=== PATIENT | female | born 1955 | race Caucasian/White ===

== ENCOUNTER 2016-05-04 06:23 | Inpatient (IN) | payer OTHER ==
[~2016-05-04] VITALS: Ht 167.6 cm; Wt 63.3 kg
[2016-05-04] VITALS (8 sets, daily range): BP systolic 109–160; BP diastolic 64–73; PULSE 74–83; RESP 12–20; TEMP 98.2–98.6; O2SAT 95–99
[~2016-05-04 06:23] MED LIST: ASPI81; GLUCTAB PO; HYDR-2768 PO; LORTA10 PO; NAPR550 PO; RANI150T PO; SIMV40TA PO
[2016-05-04] MEDS ORDERED: SODIUM CHLOR 0.9% 1000 ML INJ 1,000 ML IV SCH (09:20)
[2016-05-04] MEDS ORDERED: ONDANSETRON HCL 4 MG/2 ML VIAL IVP PRN (09:30)
[2016-05-04] MEDS ORDERED: ceFAZolin 2 GM PREMIX 50 ML IV SCH (09:30)
[2016-05-04] MEDS ORDERED: PANTOPRAZOLE SOD 40 MG DELAYED RELEASE TAB PO SCH (09:30)
[2016-05-04] MEDS ORDERED: PAPAVERINE INJ 60 MG, NITROGLYCERIN INJ 100 MCG, DILTIAZEM INJ 100 MG in SODIUM CHLORID... IRRIGATION SCH (09:30)
[2016-05-04] MEDS ORDERED: METOPROLOL TARTRATE 25 MG TAB PO SCH (09:30)
[2016-05-04] MEDS ORDERED: INSULIN REGULAR (IV INFUSION) 100 UNITS in SODIUM CHLORIDE 0.9% INJ 100 ML IV SCH (09:30)
[2016-05-04] MEDS ORDERED: ACETAMINOPHEN 325 MG TAB PO PRN (09:30)
[2016-05-04] MEDS ORDERED: CHLORHEXIDINE GLUCONATE 4% SOLN 120 ML BTL TOPICAL SCH (09:30)
[2016-05-04] MEDS ORDERED: SODIUM CHLORIDE 0.9% FLUSH 5 ML FLUSH FLUSH PRN (09:30)
[2016-05-04] MEDS ORDERED: MAGNESIUM HYDROXIDE SUSP 30 ML CUP PO PRN (09:30)
[2016-05-04] MEDS ORDERED: CEFAZOLIN INJ 500 MG in SODIUM CHLORIDE 0.9% IRR BTL 500 ML IRRIGATION SCH (09:30)
[2016-05-04] MEDS ORDERED: NALOXONE HCL 0.4 MG/ML AMP IV PRN (09:30)
[2016-05-04] MEDS ORDERED: SODIUM CHLORIDE 0.9% FLUSH 5 ML FLUSH IV FLUSH PRN (09:30)
[2016-05-04] MEDS ORDERED: HEPARIN-D5W INJ 250 ML IV SCH (09:45)
[2016-05-04] MEDS ORDERED: HEPARIN-D5W INJ 250 ML ONE (09:58)
[2016-05-04] MEDS ORDERED: oxyCODONE/ACETAMINOPHEN 5 MG/325 MG TAB PO PRN (10:00)
[2016-05-04] MEDS ORDERED: MORPHINE SULFATE 4 MG/ML INJ IV PRN (10:00)
[2016-05-04] MEDS: DOCUSATE SODIUM 100 MG CAP PO SCH ×2 (10:02→21:30)
[2016-05-04] MEDS: METOPROLOL TARTRATE 25 MG TAB PO SCH ×2 (10:03→21:30)
[2016-05-04 11:01] LABS: BLOOD, URINE NEG (NEG); COMMENT (UR) CULTURE INDICATED; CULTURE IF INDICATED CULTURE INDICATED; GLUCOSE,URINE TRACE mg/dL (NEG); HYALINE CAST, URINE 1 /lpf (RARE); KETONE, URINE NEG (NEG); MUCUS URINE FEW /lpf (OCC); NITRITE,URINE NEG (NEG); URINE COLOR YELLOW (YELLW/STRAW)
[2016-05-04 11:13] LABS: ANION GAP 8 MEQ/L (5-15); BICARBONATE 28.6 MEQ/L (21.0-32.0); BLOOD UREA NITROGEN 17 MG/DL (7-18); CHLORIDE 102 MEQ/L (98-107); GLOMERULAR FILTRATION RATE 58 ML/MIN (>89); SODIUM (NA) 139 MEQ/L (136-145)
[2016-05-04 11:15] LABS: POTASSIUM 4.3 MEQ/L (3.5-5.1)
--- NOTE | 2016-05-04 12:11 | RADRPT ---
EXAM DATE/TIME: 05/04/2016 09:57 [facility] COMPARISON: No previous studies available for comparison. INDICATIONS : PreOp cardiac surgery. MEDICAL HISTORY : Hypercholesterolemia. Hypertension. Diabetes. SURGICAL HISTORY : Appendectomy. Tubal ligation. ENCOUNTER: Initial ACUITY: 1 day PAIN SCORE: 0/10 LOCATION: Bilateral neck PEAK SYSTOLIC VELOCITIES (cm/sec): ICA/CCA RATIO: Right: 1.1 Left: 1.7 ICA: Right: 80 Left: 162 CCA: Right: 74 Left: 94 ECA: Right: 92 Left: 318 VERTEBRAL: Right: 41 antegrade Left: 56 antegrade Elevated flow velocities and ICA/CCA ratios have been found to correlate with increased degrees of vessel stenosis, calculated as percentage of diameter relative to a normal segment of distal ICA/CCA FINDINGS: RIGHT CAROTID: There is no evidence for a hemodynamically significant carotid stenosis. Minimal int imal hyperplasia is present with scattered calcific plaque. LEFT CAROTID: There is no evidence for a hemodynamically significant carotid stenosis. Minimal inti mal hyperplasia is present with scattered calcific plaque. VERTEBRAL ARTERIES: Flow is antegrade in both vertebral arteries. MISCELLANEOUS: There are no ancillary masses or adenopathy. CONCLUSION: Negative examination for a hemodynamically significant carotid stenosis. Vinay Flowesr MD FACR Vinay Flowers MD FACR on May 04, 2016 at 12:09 Board Certified Radiologist. This report was verified electronically.
--- NOTE | 2016-05-04 12:12 | RADRPT ---
EXAM DATE/TIME: 05/04/2016 10:15 [facility] COMPARISON: No previous studies available for comparison. INDICATIONS : PreOp cardiac surgery. MEDICAL HISTORY : Hypertension. Hypercholesterolemia. Diabetes. SURGICAL HISTORY : Appendectomy.Tubal ligation. ENCOUNTER: Initial ACUITY: 1 day PAIN SCORE: 0/10 LOCATION: Bilateral legs. TECHNIQUE: Venous ultrasound of the left and right leg was performed from the inguinal ligament to the proximal calf. Real-time, color Doppler and spectral tracing, compression and augmentation techniques were us ed. FINDINGS: RIGHT LEG: There is normal compressibility of the deep venous system from the inguinal region to the proximal ca lf. No echogenic clot is seen in the lumen of the common femoral, femoral, popliteal, and posterior tibial veins. There is a normal response of the venous system to proximal and distal augmentation an d respiration. LEFT LEG: There is normal compressibility of the deep venous system from the inguinal region to the proximal ca lf. No echogenic clot is seen in the lumen of the common femoral, femoral, popliteal, and posterior tibial veins. There is a normal response of the venous system to proximal and distal augmentation an d respiration. CONCLUSION: Negative for deep venous thrombosis. Vinay Flowers MD FACR on May 04, 2016 at 12:10 Board Certified Radiologist. This report was verified electronically.
--- NOTE | 2016-05-04 12:13 | RADRPT ---
EXAM DATE/TIME: 05/04/2016 10:30 [facility] COMPARISON: No previous studies available for comparison. INDICATIONS : PreOp cardiac surgery. MEDICAL HISTORY : Hypercholesterolemia. Hypertension. Diabetes. SURGICAL HISTORY : Appendectomy. Tubal ligation. ENCOUNTER: Initial ACUITY: 1 day PAIN SCORE: 0/10 LOCATION: Bilateral legs. GREATER SAPHENOUS VEIN THIGH: PROXIMAL: Right 3 mm Left 4 mm MID: Right 2 mm Left 1 mm DISTAL: Right 1 mm Left Non-visualized CALF: PROXIMAL: Right 1 mm Left Non-visualized MID: Right Non-visualized Left Non-visualized DISTAL: Right Non-visualized Left Non-visualized FINDINGS: The venous system of the lower extremities are patent by color Doppler imaging. Measurements of the leg veins (in mm) are listed above. CONCLUSION: Venous mapping as described above. Vinay Flowers MD FACR on May 04, 2016 at 12:10 Board Certified Radiologist. This report was verified electronically.
--- NOTE | 2016-05-04 13:10 | RADRPT ---
EXAM DATE/TIME: 05/04/2016 09:39 [facility] COMPARISON: No previous studies available for comparison. INDICATIONS : Placement of intra-aortic balloon pump. MEDICAL HISTORY : None. SURGICAL HISTORY : None. ENCOUNTER: Initial ACUITY: 1 day PAIN SCORE: 0/10 LOCATION: Bilateral chest FINDINGS: There is an enteric balloon pump projected over the proximal descending thoracic aorta. No focal cons olidation or effusion. No pneumothorax. Heart size mildly enlarged. CONCLUSION: 1. Intra-aortic balloon pump tip is projected over proximal descending thoracic aorta in satisfactory position. Brad Frank MD on May 04, 2016 at 13:07 Board Certified Radiologist. This report was verified electronically.
[2016-05-04 14:49] LABS: PROTHROMBIN TIME - PATIENT 10.7 SEC (9.8-11.6)
--- NOTE | 2016-05-04 14:50 | PD.CAR.PN ---
CVT Progress Note Subjective/Hospital Course: sts data discussed with pt RISK SCORES About the STS Risk Calculator Procedure: CAB Only Risk of Mortality: 2.317% Morbidity or Mortality: 24.194% Long Length of Stay: 7.075% Short Length of Stay: 34.877% Permanent Stroke: 1.439% Prolonged Ventilation: 25.535% DSW Infection: 0.364% Renal Failure: 2.665% Reoperation: 7.115% Objective: Vital Signs Date Time Temp Pulse Resp B/P Pulse Ox O2 Delivery O2 Flow Rate FiO2 05/04/16 14:09 143/67 05/04/16 13:09 145/63 05/04/16 12:08 145/63 05/04/16 11:30 98.6 75 18 157/73 98 05/04/16 11:02 135/61 05/04/16 11:02 83 05/04/16 10:56 16 05/04/16 10:00 147/72 05/04/16 09:54 98.6 83 17 160/66 97 05/04/16 09:13 135/65 05/04/16 09:08 95 Room Air 05/04/16 08:54 127/62 05/04/16 08:53 78 Labs: Laboratory Tests Test 05/04/16 05/04/16 05/04/16 10:00 10:46 12:47 Urine Color YELLOW (YELLW/STRAW) Urine Turbidity CLEAR (CLEAR) Urine pH 8.0 (5.0-8.5) Urine Specific [place] 1.019 (1.002-1.035) Urine Protein TRACE mg/dL (NEG-TRACE) Urine Glucose (UA) TRACE mg/dL (NEG) Urine Ketones NEG mg/dL (NEG) Urine Occult Blood NEG (NEG) Urine Nitrite NEG (NEG) Urine Bilirubin NEG (NEG) Urine Urobilinogen LESS THAN 2.0 MG/DL (LESS THAN 2.0) Urine Leukocyte Esterase NEG (NEG) Urine RBC 3 /hpf (0-3) Urine WBC 4 /hpf (0-5) Urine WBC Clumps RARE (NONE) Urine Hyaline Casts 1 /lpf (RARE) Urine Mucus FEW /lpf (OCC) Microscopic Urinalysis Comment CULTURE INDICATED Nasal Screen MRSA (PCR) NEGATIVE (NEGATIVE) Sodium Level 139 MEQ/L (136-145) Potassium Level 4.3 MEQ/L (3.5-5.1) Chloride Level 102 MEQ/L (98-107) Carbon Dioxide Level 28.6 MEQ/L (21.0-32.0) Anion Gap 8 MEQ/L (5-15) Blood Urea Nitrogen 17 MG/DL (7-18) Creatinine 0.98 MG/DL (0.50-1.00) Estimat Glomerular Filtration 58 ML/MIN (>89) Rate Random Glucose 152 MG/DL (74-106) Calcium Level 8.9 MG/DL (8.5-10.1) Prothrombin Time 10.7 SEC (9.8-11.6) Prothromb Time International 1.0 RATIO Ratio Activated Partial 40.0 SEC Thromboplast Time (24.3-30.1) Result Diagram: 05/04/16 1046 Melani Mario May 04, 2016 14:50
[2016-05-04 14:55] LABS: AUTOMATED NEUTROPHIL # 7.4 TH/MM3 (1.8-7.7); BASOPHIL % 0.2 % (0.0-2.0); HEMATOCRIT 33.5 % (35.0-46.0); HEMO FLAGS DIFF FINAL; LYMPHOCYTE # 1.3 TH/MM3 (1.0-4.8); MEAN CELL VOLUME 85.5 FL (80.0-100.0); MEAN CORPUSCULAR HEMOGLOBIN 28.6 PG (27.0-34.0); MEAN CORPUSCULAR HGB CONC 33.5 % (32.0-36.0); MONO % 4.7 % (0.0-8.0); NEUT % 81.1 % (16.0-70.0); PLATELET COUNT 195 TH/MM3 (150-450); RED BLOOD COUNT 3.92 MIL/MM3 (4.00-5.30); RED CELL DISTRIBUTION WIDTH 13.6 % (11.6-17.2); WHITE BLOOD COUNT 9.2 TH/MM3 (4.0-11.0)
[2016-05-04] MEDS: VANCOMYCIN HCL 1000 MG VIAL ONE ×2 (15:29→15:30)
[2016-05-04] MEDS: HEPARIN SODIUM - SQ 10,000 UNITS/ML VIAL ONE (15:30)
[2016-05-04] MEDS ORDERED: HEPARIN SODIUM - IV 10,000 UNITS/10 ML VIAL IV PRN ×2 (15:45)
[2016-05-04] MEDS ORDERED: ASPIRIN EC 81 MG TABEC PO SCH (16:00)
--- NOTE | 2016-05-04 16:57 | EC ---
Study Study Date:05/04/2016 STUDY CONCLUSIONS SUMMARY - Left ventricle: The cavity size was normal. Systolic function was normal. The estimated ejection fraction was in the range of 55% to 60%. Wall motion was normal; there were no regional wall motion abnormalities. - Mitral valve: Mild regurgitation. If LV function is below 40, please consider prescribing an ACEI or ARB or document rationale for non-use. PROCEDURE DATA STUDY STATUS: Elective. Procedure: Transthoracic echocardiography. Image quality was good. Scanning was performed from the parasternal, apical, and subcostal acoustic windows. Study completion: The patient tolerated the procedure well. Transthoracic echocardiography. M-mode, complete 2D, complete spectral Doppler, and color Doppler. Patient status: Inpatient. CARDIAC ANATOMY LEFT VENTRICLE: The cavity size was normal. Systolic function was normal. The estimated ejection fraction was in the range of 55% to 60%. Wall motion was normal; there were no regional wall motion abnormalities. AORTIC VALVE: Trileaflet; mildly thickened leaflets. Doppler: There was no stenosis. No significant regurgitation. MITRAL VALVE: The valve appears to be grossly normal. Doppler: There was no evidence for stenosis. Mild regurgitation. LEFT ATRIUM: The atrium was normal in size. RIGHT VENTRICLE: The cavity size was normal. Systolic function was normal. PULMONIC VALVE: Not well visualized. Doppler: There was no evidence for stenosis. No significant regurgitation. TRICUSPID VALVE: The valve appears to be grossly normal. Doppler: There was no evidence for stenosis. Trace to mild regurgitation. PERICARDIUM: There was no pericardial effusion. Prepared and signed by Evangelist Senior [id number]
[2016-05-04] MEDS ORDERED: ASPI81TA81 PO (17:06)
[2016-05-04 17:09] LABS: HEMOGLOBIN A1a 1.4 %; HEMOGLOBIN Ao 83.2 %; HEMOGLOBIN LA1C 2.6 %; HEMOGLOBIN P3 4.3 %
[2016-05-04] MEDS ORDERED: RANI1TAB5 PO (17:31)
[2016-05-04] MEDS ORDERED: HYDR25TA5 PO (17:31)
[2016-05-04] MEDS ORDERED: METF500T PO (17:31)
[2016-05-04] MEDS ORDERED: HYDR-3583 PO (17:31)
[2016-05-04] MEDS ORDERED: SIMV40TA PO (17:31)
[2016-05-04] MEDS ORDERED: NAPR275T18 PO (17:31)
[2016-05-04] MEDS ORDERED: SODIUM CHLORIDE 0.9% FLUSH 5 ML FLUSH IV FLUSH SCH (21:00)
[2016-05-04] MEDS ORDERED: SODIUM CHLORIDE 0.9% FLUSH 5 ML FLUSH FLUSH SCH (21:00)
[2016-05-04] MEDS: PRAVASTATIN SOD 10 MG TAB PO SCH (21:30)
[2016-05-04 22:15] LABS: APTT (PATIENT) 37.8 SEC (24.3-30.1)
[2016-05-05] VITALS (18 sets, daily range): BP systolic 82–149; BP diastolic 45–85; PULSE 68–93; RESP 11–20; TEMP 97–99.5; O2SAT 94–99
[2016-05-05 04:47] LABS: APTT (PATIENT) 56.1 SEC (24.3-30.1)
[2016-05-05] MEDS ORDERED: DEXTROSE 5% IN WATER 100ML INJ 100 ML IV ONE (05:00)
[2016-05-05] MEDS ORDERED: AMIODARONE HCL 150 MG/3 ML VIAL IV ONE (05:00)
[2016-05-05] MEDS ORDERED: PROPOFOL 1000 MG/100 ML INJ 100 ML IV ONE (05:00)
[2016-05-05] MEDS ORDERED: PHENYLEPHRINE HCL 10 MG/ML VIAL IV ONE (05:00)
[2016-05-05] MEDS ORDERED: HEPARIN SODIUM - SQ 10,000 UNITS/ML VIAL SQ ONE (05:00)
[2016-05-05] MEDS ORDERED: AMINOCAPROIC ACID INJ 250 MG/ML 20 ML VIAL IV ONE (05:00)
[2016-05-05] MEDS ORDERED: ARTIFICIAL TEARS OPTH OINT 3.5 APPLIC/3.5 GM TUBO ONE (05:00)
[2016-05-05] MEDS ORDERED: CALCIUM CHLORIDE 10% SOLN 1 GRAM/10 ML SYR IV ONE (05:00)
[2016-05-05] MEDS ORDERED: MAGNESIUM SULFATE 1000 MG/2 ML VIAL (PED) IV ONE (05:00)
[2016-05-05] MEDS ORDERED: LACTATED RINGER'S 1000 ML IV SCH (06:00)
[2016-05-05] MEDS ORDERED: INSULIN HUMAN REGULAR 1,000 UNITS/10 ML VIAL SQ PRN (06:00)
[2016-05-05] MEDS ORDERED: SODIUM CHLORID 0.9% 500 ML IV SCH (06:00)
[2016-05-05] MEDS ORDERED: POTASSIUM CHLORIDE 40 MEQ/20 ML VIAL ONE (06:48)
[2016-05-05] MEDS ORDERED: CARDIOPLEGIC IRR 1,000 ML ONE (06:48)
[2016-05-05] MEDS ORDERED: MANNITOL INJ 50 ML ONE (06:48)
[2016-05-05] MEDS ORDERED: SODIUM BICARBONATE 8.4% INJ 50 ML ONE (06:49)
[2016-05-05] MEDS ORDERED: HEPARIN SODIUM - IV 10,000 UNITS/10 ML VIAL ONE (06:50)
[2016-05-05] MEDS ORDERED: ALBUMIN HUMAN 25% 12.5 GM/50 ML BAGP IV ONE (06:51)
[2016-05-05] MEDS ORDERED: methylPREDNISolone SOD SUCC 125 MG/2 ML VIAL ONE (08:54)
[2016-05-05] MEDS: HEPARIN SODIUM - SQ 10,000 UNITS/ML VIAL ONE (09:02)
[2016-05-05] MEDS: VANCOMYCIN HCL 1000 MG VIAL ONE ×2 (09:02)
[2016-05-05] MEDS: DOCUSATE SODIUM 100 MG CAP PO SCH ×2 (09:30→21:46)
[2016-05-05] MEDS ORDERED: ACETAMINOPHEN 1000 MG/100 ML VIAL IV ONE (11:41)
[2016-05-05] MEDS ORDERED: CALCIUM CHLORIDE INJ 1 GM in SODIUM CHLORIDE 0.9% INJ 100 ML IV PRN (11:45)
[2016-05-05] MEDS ORDERED: Post-op Orders (for Pharmacy) MISC OTHER ONE (11:45)
[2016-05-05] MEDS ORDERED: METOPROLOL TARTRATE 5 MG/5 ML VIAL IV PUSH PRN (11:45)
[2016-05-05] MEDS ORDERED: LACTATED RINGER'S 1000 ML INJ 500 ML IV PRN (11:45)
[2016-05-05] MEDS ORDERED: POTASSIUM CHLORIDE 20 MEQ CONTROLLED RELEASE TAB PO PRN ×2 (11:45)
[2016-05-05] MEDS ORDERED: DEXTROSE 50% IN WATER 50 ML VIAL(D50) IV PUSH PRN (11:45)
[2016-05-05] MEDS ORDERED: CALCIUM CHLORIDE 10% 1 GRAM/10 ML VIAL IV PRN (11:45)
[2016-05-05] MEDS ORDERED: ACETAMINOPHEN 650 MG SUPP RECTAL PRN (11:45)
[2016-05-05] MEDS ORDERED: MAGNESIUM SULFATE INJ 2 GM in SODIUM CHLORIDE 0.9% INJ 100 ML IV PRN ×4 (11:45)
[2016-05-05] MEDS ORDERED: CLEVIDIPINE INJ 50 ML IV SCH (11:45)
[2016-05-05] MEDS ORDERED: ACETAMINOPHEN 325 MG TAB PO PRN (11:45)
[2016-05-05] MEDS ORDERED: SODIUM CHLORIDE 0.9% FLUSH 5 ML FLUSH IV FLUSH PRN (11:45)
[2016-05-05] MEDS ORDERED: hydrALAZINE HCL 20 MG/ML VIAL IV PRN (11:45)
[2016-05-05] MEDS ORDERED: POTASSIUM CHLOR 20 MEQ PREMIX 100 ML IV PRN ×2 (11:45)
--- NOTE | 2016-05-05 12:00 | PD.OP ---
cc: Yokasta Frankel MD Operative Report Date of Surgery: May 05, 2016 Preoperative Diagnosis: (1) Coronary artery disease (2) NSTEMI (non-ST elevated myocardial infarction) Postoperative Diagnosis: same Procedure: Emergent CABG x 3 HUITRON to LAD - good SVG to OM - good SVG to PDA - good EVH Anesthesia: Dr. Schilling Surgeon: Yokasta Frankel Contract Assistant(s): Aydin Goldstein Operation and Findings: The risks, benefits, complications, treatment options, and expected outcomes were discussed with the patient. The possibilities of reaction to medication, pulmonary aspiration, perforation of viscus, bleeding, recurrent infection, the need for additional procedures, failure to diagnose a condition, and creating a complication requiring transfusion or operation were discussed with the patient. The patient concurred with the proposed plan, giving informed consent. The site of surgery properly noted/marked. The patient was taken to Operating Room, identified as Maria Luisa Montesinos, and the procedure verified as CABG, EVH, ROBIN. A Time Out was held and the above information confirmed. Standard monitoring lines and Walker catheter were placed. General anesthesia was induced. The patient was prepped and draped in a sterile fashion. A median sternotomy was performed and electrocautery was used to obtain hemostasis. The left internal mammary artery was procured as a pedicle from the 7th rib to the 1st rib in the usual manner. Simultaneously left greater saphenous vein was procured from the left leg using a minimally invasive endoscopic technique. The vein was prepared for anastomosis and the leg wound was irrigated and closed in 2 layers. The pericardium was opened and a pericardial sling was created using interrupted 0 silk sutures. The patient was heparinized for cardiopulmonary bypass and the distal mammary pedicle was instrumented for anastomosis. The heart was instrumented for cardiopulmonary bypass in the usual manner. Antegrade blood cardioplegia was employed. The patient was placed on cardiopulmonary bypass. An aortic cross-clamp was applied and the heart was arrested using cold blood cardioplegia. Antegrade cardioplegia was administered after he each anastomosis. After adequate arrest, the distal right coronary circulation was investigated and the PDA was opened with a [place] blade and found to be a 1.5 millimeter good target. Saphenous vein was approximated to the PDA artery using a running 7 0 Prolene suture. The graft was measured for length and orientation and the proximal anastomosis was constructed to the ascending aorta using a running 5 0 Prolene suture after creating an aortotomy with a 5 millimeter punch. The 1st circumflex marginal artery was then opened with a [place] blade and found to be a 1.5 millimeter good target. Saphenous vein was approximated to the OM1 artery using a running 7 0 Prolene suture. The graft was measured for length and orientation and was suspended from the pericardium. The distal LAD was opened with a [place] blade and found to be a 1.5 millimeter good target. The left internal mammary artery was approximated to the LAD using a running 7 0 Prolene suture. The pedicle was attached to the epicardium using interrupted 5 0 silk suture. The patient was systemically rewarmed and received a hotshot dose of warm blood cardioplegia. The aorta was vented and the proximal anastomosis to the OM1 graft was accomplished using a running 5 0 Prolene suture after creating an aortotomy was a 5 millimeter punch. The cross-clamp was removed and all proximal and distal anastomoses were examined for hemostasis. The patient was weaned from cardiopulmonary bypass. Protamine was given. There was no adverse reaction. Decannulation was carried out without incident. Wound was checked for hemostasis which was obtained using electrocautery. A 36 [place] mediastinal and 32 [place] left pleural chest was were placed and secured to the skin with 0 silk suture. The sternum was closed with stainless steel wire. The fascia was closed with 1. PDS. The subcutaneous tissue was closed using a running 2-0 Vicryl suture. The skin was closed with 4- 0 Monocryl. Sterile dressings were placed. At the end of the operation, all sponge, instruments, and needle counts were correct. The patient was transferred to the CICU in stable condition. Findings: good distal targets. previously placed IABP was set to an internal rate of 50 during the cross clamp period. XC: 57 min CPB: 68 min Drains: mediastinal x 1 pleural x 1 Complications: none Disposition: to CVICU in stable condition Yokasta Frankel MD May 05, 2016 12:00
[2016-05-05] MEDS ORDERED: SODIUM CHLOR 0.9% 250 ML INJ 250 ML IV ONE (12:31)
[2016-05-05] MEDS ORDERED: SODIUM CHLORIDE 0.9% INJ 200 ML IV ONE (12:31)
[2016-05-05] MEDS ORDERED: LACTATED RINGER'S 1000 ML INJ 2,000 ML IV ONE (12:31)
[2016-05-05] MEDS ORDERED: NORMOSOL R INJ 2,000 ML IV ONE (12:31)
[2016-05-05] MEDS ORDERED: PROTAMINE SULFATE 250 MG/25 ML VIAL IV ONE (12:31)
[2016-05-05] MEDS: POTASSIUM CHLOR 20 MEQ PREMIX 100 ML IV PRN (12:49)
[2016-05-05] MEDS: ACETAMINOPHEN 1000 MG/100 ML VIAL IV SCH ×3 (12:50→23:22)
[2016-05-05] MEDS ORDERED: RESP: ALBUTEROL 2.5 MG/IPRATROPIUM 0.5 MG NEB (PRN) NEB (13:00)
[2016-05-05] MEDS ORDERED: INSULIN REGULAR (IV INFUSION) 100 UNITS in SODIUM CHLORIDE 0.9% INJ 99 ML IV SCH (13:00)
[2016-05-05] MEDS ORDERED: RESP: RACEPINEPHRINE 2.25% 0.5 ML NEB NEB PRN (13:00)
--- NOTE | 2016-05-05 13:26 | RADRPT ---
EXAM DATE/TIME: 05/05/2016 12:51 [facility] COMPARISON: CHEST SINGLE AP, May 04, 2016, 9:39. INDICATIONS : Post CABG. MEDICAL HISTORY : None. SURGICAL HISTORY : None. ENCOUNTER: Subsequent ACUITY: 2 days PAIN SCORE: Non-responsive. LOCATION: Bilateral chest FINDINGS: ET tube, central venous catheter, mediastinal drain and left chest drain are in good position. The l ungs are clear. Heart and pulmonary vascularity are normal. Sternal wires are noted. CONCLUSION: Satisfactory appearance of the chest following coronary artery bypass grafting. Vinay Flowers MD FACR on May 05, 2016 at 13:24 Board Certified Radiologist. This report was verified electronically.
[2016-05-05] MEDS: AMIODARONE 200 MG TAB PO SCH ×2 (15:32→21:46)
[2016-05-05] MEDS: RESP: ALBUTEROL 2.5 MG/IPRATROPIUM 0.5 MG NEB (SCH) NEB ×2 (16:47→21:28)
[2016-05-05] MEDS: PRAVASTATIN SOD 10 MG TAB PO SCH (21:46)
[2016-05-05] MEDS: SODIUM CHLORIDE 0.9% FLUSH 5 ML FLUSH IV FLUSH SCH (21:47)
[2016-05-06] VITALS (10 sets, daily range): BP systolic 107–129; BP diastolic 55–72; PULSE 82–100; RESP 16–18; TEMP 98.2–99.2; O2SAT 94–99
[2016-05-06] MEDS: RESP: ALBUTEROL 2.5 MG/IPRATROPIUM 0.5 MG NEB (SCH) NEB ×4 (04:14→20:00)
[2016-05-06] MEDS: PANTOPRAZOLE SOD 40 MG DELAYED RELEASE TAB PO SCH (05:14)
[2016-05-06] MEDS: ACETAMINOPHEN 1000 MG/100 ML VIAL IV SCH (05:14)
[2016-05-06] MEDS: AMIODARONE 200 MG TAB PO SCH ×3 (05:15→20:23)
--- NOTE | 2016-05-06 05:26 | RADRPT ---
EXAM DATE/TIME: 05/06/2016 03:34 [facility] COMPARISON: CHEST SINGLE AP, May 05, 2016, 12:51. INDICATIONS : Shortness of breath, possible pulmonary disease. MEDICAL HISTORY : None. SURGICAL HISTORY : CABG. ENCOUNTER: Subsequent ACUITY: 3 days PAIN SCORE: Non-responsive. LOCATION: Bilateral chest FINDINGS: Interval extubation and removal of gastric tube. Mediastinal drain and left chest tube stable in pos ition. Right internal jugular catheter tip in the distal superior vena cava. Evidence of prior medi an sternotomy. There is persistent consolidation in the left lower lung with loss of delineation of the medial one half of the left hemidiaphragm. The right lung is clear. CONCLUSION: Persistent left lower lung consolidation. Jerrod Yeh MD on May 06, 2016 at 5:23 Board Certified Radiologist. This report was verified electronically.
[2016-05-06 07:13] LABS: HEMATOCRIT 26.8 % (35.0-46.0); MEAN CELL VOLUME 86.1 FL (80.0-100.0); MEAN CORPUSCULAR HEMOGLOBIN 28.7 PG (27.0-34.0); MEAN CORPUSCULAR HGB CONC 33.3 % (32.0-36.0); PLATELET COUNT 115 TH/MM3 (150-450); RED BLOOD COUNT 3.11 MIL/MM3 (4.00-5.30); REVIEW FLAG FINAL; WHITE BLOOD COUNT 11.8 TH/MM3 (4.0-11.0)
[2016-05-06] MEDS: SODIUM CHLORIDE 0.9% FLUSH 5 ML FLUSH IV FLUSH SCH ×2 (07:31→20:20)
[2016-05-06] MEDS: ASPIRIN 81 MG CHEW TAB PO SCH (07:32)
[2016-05-06] MEDS: DOCUSATE SODIUM 100 MG CAP PO SCH ×2 (07:33→20:19)
[2016-05-06] MEDS: oxyCODONE/ACETAMINOPHEN 5 MG/325 MG TAB PO PRN ×3 (07:34→16:35)
[2016-05-06 07:43] LABS: BICARBONATE 27.6 MEQ/L (21.0-32.0); MAGNESIUM 2.1 MG/DL (1.5-2.5)
[2016-05-06] MEDS: POTASSIUM CHLOR 20 MEQ PREMIX 100 ML IV PRN (08:04)
--- NOTE | 2016-05-06 10:03 | PD.CAR.PN ---
CVT Progress Note CVT: POD #: 1 Subjective/Hospital Course: sts data discussed with pt RISK SCORES About the STS Risk Calculator Procedure: CAB Only Risk of Mortality: 2.317% Morbidity or Mortality: 24.194% Long Length of Stay: 7.075% Short Length of Stay: 34.877% Permanent Stroke: 1.439% Prolonged Ventilation: 25.535% DSW Infection: 0.364% Renal Failure: 2.665% Reoperation: 7.115% 05/06/16 doing well No complaints Objective: Vital Signs Date Time Temp Pulse Resp B/P Pulse Ox O2 Delivery O2 Flow Rate FiO2 05/06/16 09:00 87/48 05/06/16 08:43 16 05/06/16 08:00 107/55 05/06/16 08:00 83 05/06/16 08:00 99.2 83 16 107/55 99 05/06/16 07:00 95/55 05/06/16 06:00 113/59 05/06/16 05:00 99.2 84 16 114/60 99 05/06/16 05:00 106/59 05/06/16 05:00 16 05/06/16 04:00 118/63 05/06/16 03:00 91/53 05/06/16 03:00 82 05/06/16 03:00 98.9 86 18 121/56 98 05/06/16 02:00 91/59 05/06/16 01:00 86/46 05/06/16 00:00 103/60 05/05/16 23:55 16 05/05/16 23:40 84 05/05/16 23:38 99.5 84 18 149/69 98 05/05/16 23:00 96/54 05/05/16 22:00 103/66 05/05/16 21:28 98 Nasal Cannula 2.00 05/05/16 21:00 95/56 05/05/16 20:00 98.8 93 18 143/85 98 05/05/16 20:00 109/63 05/05/16 19:15 93 05/05/16 19:00 99/58 EKG 05/05/16 18:03 92/53 05/05/16 17:00 98 Nasal Cannula 2.00 05/05/16 17:00 94/55 05/05/16 16:00 86/54 05/05/16 15:00 97.4 86 11 141/52 99 88/47 05/05/16 15:00 86 05/05/16 15:00 90/57 05/05/16 14:00 99 Nasal Cannula 4.00 05/05/16 14:00 98/59 05/05/16 14:00 99 Nasal Cannula 4 05/05/16 13:47 97.0 05/05/16 13:10 97 50 05/05/16 13:00 97.2 80 11 140/66 99 92/53 05/05/16 13:00 92/53 05/05/16 12:36 97 55 05/05/16 12:30 97.6 05/05/16 12:20 94 50 05/05/16 12:15 50 05/05/16 12:15 97.4 86 12 90/57 05/05/16 12:15 98.0 88 11 123/45 99 82/47 05/05/16 12:15 90/57 05/05/16 12:15 86 Labs: Laboratory Tests Test 05/06/16 06:00 White Blood Count 11.8 TH/MM3 (4.0-11.0) Red Blood Count 3.11 MIL/MM3 (4.00-5.30) Hemoglobin 8.9 GM/DL (11.6-15.3) Hematocrit 26.8 % (35.0-46.0) Mean Corpuscular Volume 86.1 FL (80.0-100.0) Mean Corpuscular Hemoglobin 28.7 PG (27.0-34.0) Mean Corpuscular Hemoglobin 33.3 % Concent (32.0-36.0) Red Cell Distribution Width 14.0 % (11.6-17.2) Platelet Count 115 TH/MM3 (150-450) Mean Platelet Volume 8.7 FL (7.0-11.0) Sodium Level 141 MEQ/L (136-145) Potassium Level 4.0 MEQ/L (3.5-5.1) Chloride Level 104 MEQ/L (98-107) Carbon Dioxide Level 27.6 MEQ/L (21.0-32.0) Anion Gap 9 MEQ/L (5-15) Blood Urea Nitrogen 15 MG/DL (7-18) Creatinine 0.70 MG/DL (0.50-1.00) Estimat Glomerular Filtration 86 ML/MIN (>89) Rate Random Glucose 133 MG/DL (74-106) Calcium Level 7.8 MG/DL (8.5-10.1) Magnesium Level 2.1 MG/DL (1.5-2.5) Result Diagram: 05/06/16 0600 05/06/16 0600 Imaging: Last 24 hours Impressions Chest X-Ray 05/06/16 0500 Signed Impressions: Service Date/Time: Friday, May 06, 2016 03:34 - CONCLUSION: Persistent left lower lung consolidation. Jerrod Yeh MD Cardiovascular: RRR Telemetry: NSR Pulmonary: CTA GI/: NABS, NT Incision: dry and intact CT: 340ml/12 hrs Plan: D/C IABP Up to chair/ambulate later today Diurese Transfer stepdown Yokasta Frankel MD May 06, 2016 10:03
[2016-05-06] MEDS ORDERED: BISACODYL EC 5 MG TABEC PO PRN (10:15)
[2016-05-06] MEDS ORDERED: BISACODYL 10 MG SUPP RECTAL PRN (10:15)
[2016-05-06] MEDS ORDERED: GLUCAGON 1 MG/ML VIAL OTHER PRN (10:15)
[2016-05-06] MEDS ORDERED: SOD PHOSPHATE/SOD BIPHOSPHATE (ADULT) ENEMA 133ML RECTAL PRN (10:15)
[2016-05-06] MEDS ORDERED: DEXTROSE 50% IN WATER 50 ML VIAL(D50) IV PRN ×2 (10:15→23:15)
--- NOTE | 2016-05-06 14:40 | EKG ---
Date Performed: 05/06/2016 Time Performed: 05:45:26 PTAGE: 60 years EKG: Sinus rhythm with PAC(s). Short IA interval ST/T wave changes inferior and lateral, consider ischemia, Clinical c orrelation is recommended Abnormal ECG NO PREVIOUS TRACING DOCTOR: Evangelist Senior Interpretating Date/Time 05/06/2016 14:40:06
[2016-05-06] MEDS: FUROSEMIDE 40 MG/4 ML VIAL IV PUSH SCH (18:20)
[2016-05-06] MEDS: ONDANSETRON HCL 4 MG/2 ML VIAL IV PUSH PRN (18:24)
[2016-05-06] MEDS: PRAVASTATIN SOD 10 MG TAB PO SCH (20:20)
[2016-05-06] MEDS: POTASSIUM CHLORIDE 10 MEQ CONTROLLED RELEASE TAB PO SCH (20:20)
[2016-05-06] MEDS ORDERED: GLUCAGON 1 MG/ML VIAL IV PRN (23:15)
[2016-05-06] MEDS: INSULIN ASPART SUPPLEMENTAL SCALE SQ SCH (23:28)
[2016-05-07] VITALS (28 sets, daily range): BP systolic 102–121; BP diastolic 62–74; PULSE 83–107; RESP 16–18; TEMP 98.2–98.8; O2SAT 92–100
[2016-05-07] MEDS: INSULIN ASPART SUPPLEMENTAL SCALE SQ SCH ×4 (02:00→21:37)
[2016-05-07] MEDS: oxyCODONE/ACETAMINOPHEN 5 MG/325 MG TAB PO PRN ×2 (04:38→10:18)
[2016-05-07] MEDS: PANTOPRAZOLE SOD 40 MG DELAYED RELEASE TAB PO SCH (05:29)
[2016-05-07] MEDS: AMIODARONE 200 MG TAB PO SCH ×3 (05:29→21:37)
[2016-05-07 07:03] LABS: AUTOMATED NEUTROPHIL # 7.9 TH/MM3 (1.8-7.7); BASOPHIL % 0.2 % (0.0-2.0); EOSINOPHIL # 0.1 TH/MM3 (0-0.4); EOSINOPHIL % 0.5 % (0.0-4.0); HEMATOCRIT 24.2 % (35.0-46.0); HEMO FLAGS DIFF FINAL; LYMPH % 22.1 % (9.0-44.0); LYMPHOCYTE # 2.5 TH/MM3 (1.0-4.8); MEAN CELL VOLUME 85.3 FL (80.0-100.0); MEAN CORPUSCULAR HEMOGLOBIN 28.4 PG (27.0-34.0); MEAN CORPUSCULAR HGB CONC 33.3 % (32.0-36.0); MONO % 7.4 % (0.0-8.0); NEUT % 69.8 % (16.0-70.0); PLATELET COUNT 114 TH/MM3 (150-450); RED BLOOD COUNT 2.83 MIL/MM3 (4.00-5.30); RED CELL DISTRIBUTION WIDTH 13.8 % (11.6-17.2); WHITE BLOOD COUNT 11.3 TH/MM3 (4.0-11.0)
[2016-05-07 07:13] LABS: BICARBONATE 30.5 MEQ/L (21.0-32.0); POTASSIUM 4.4 MEQ/L (3.5-5.1)
[2016-05-07] MEDS: RESP: ALBUTEROL 2.5 MG/IPRATROPIUM 0.5 MG NEB (SCH) NEB ×3 (07:31→19:23)
[2016-05-07] MEDS: POLYETHYLENE GLYCOL 17 GM PKG PO SCH (08:26)
[2016-05-07] MEDS: SODIUM CHLORIDE 0.9% FLUSH 5 ML FLUSH IV FLUSH SCH ×2 (08:27→21:36)
[2016-05-07] MEDS: POTASSIUM CHLORIDE 10 MEQ CONTROLLED RELEASE TAB PO SCH ×2 (08:27→21:36)
[2016-05-07] MEDS: MULTIVITAMINS/MINERALS THERAPEUTIC TAB PO SCH (08:27)
[2016-05-07] MEDS: FUROSEMIDE 40 MG/4 ML VIAL IV PUSH SCH ×2 (08:27→17:12)
[2016-05-07] MEDS: ASPIRIN 81 MG CHEW TAB PO SCH (08:27)
[2016-05-07] MEDS: DOCUSATE SODIUM 100 MG CAP PO SCH ×2 (08:27→21:36)
--- NOTE | 2016-05-07 08:45 | MH ---
cc: SHALONDA CORTEZ,JUVENTINO KINCAID DATE OF ADMISSION: 05/04/2016 DATE OF : 1955 HISTORY OF PRESENT ILLNESS A 60-year-old female transferred from [facility] in [place]. Patient of Dr. Juventino Clayton. Primary care physician Dr. Shalonda Cortez. She presented yesterday evening with chest pain, elevated troponins, non-STEMI. Troponins were elevated up to 10.60. The patient underwent immediate heart catheterization, found to have multivessel disease including 80% ostial left main, 90% ostial left circumflex, 100% occluded RCA. She was started on a heparin drip. An intra-aortic balloon pump was placed into the right groin. She was transferred here for evaluation for coronary artery bypass grafting. PAST MEDICAL HISTORY 1. Hypertension. 2. Hyperlipidemia. SOCIAL HISTORY She apparently has been out of her medication for about a month or two. She lost her job, apparently was to start a new job today and get new insurance. PAST SURGICAL HISTORY No past surgical history. ALLERGIES INTOLERANCE TO LIPITOR, HOWEVER, SHE HAS NOT TRIED ANY OTHER TYPE OF HYPERLIPIDEMIA MEDICATION. FAMILY HISTORY She has a sister who had stents placed at age 57. Her mother from complications of Romeo's disease, hypertension at age 42. Father at age 80, however, had a history of heart disease starting in his 40s. SOCIAL HISTORY The patient is with four children. She quit smoking six weeks ago, 29-year history. Smoked a half pack per day. She works as a [employer], however has been without a job, and was recently hired with [employer] in [place]. 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 REVIEW OF SYSTEMS GENERAL: In general no night sweats, fever, heat or cold intolerance. SKIN: No psoriasis, itching or hives. HEENT: No blurred vision, hearing loss. RESPIRATORY: Positive for shortness of breath. CARDIOVASCULAR: As above in the HPI. GASTROINTESTINAL: No diarrhea, vomiting. GENITOURINARY: No burning, frequency, urgency. EXTERNAL GRINDER TOOL: No history of TIA, CVA, seizure disorder. ENDOCRINE: No history of diabetes and/or hypothyroidism. PHYSICAL EXAMINATION VITAL SIGNS: Blood pressure 140/60. She has an intra-aortic balloon pump in the groin, augmenting at one-to-one with a good waveform, good distal pulse. HEENT: Head is normocephalic, atraumatic. Pupils equal and reactive. Eyes non-injected. Oral mucosa pink and moist. NECK: Supple. No JVD. HEART: Heart sounds S1, S2, regular rate and rhythm. No rubs, murmurs, gallops. LUNGS: Clear to auscultation. No wheezes, rales or rhonchi. ABDOMEN: Soft, nontender. No masses or organomegaly. EXTREMITIES: No cyanosis, clubbing or edema. LABORATORY DATA Hemoglobin 12.8, hematocrit 39, white cell count 6.9, platelet count 236. Sodium 138, potassium 4.2, BUN 19, creatinine 0.9. Cholesterol 272, triglycerides 126, HDL 89, LDL 208. Hemoglobin A1c was 6.2. BNP 338. Troponin was 10.60. INR 0.93. EKG DATA EKG shows sinus rhythm with T-wave inversion in inferolateral wall. IMAGING DATA Carotid ultrasound is unremarkable. Chest x-ray shows an intra-aortic balloon pump in good position. IMPRESSION AND PLAN Status post acute [id number] myocardial infarction, elevated troponins, T-wave inversions in her EKG. The patient is currently pain-free, intra-aortic balloon pump is at a one-to-one augmentation. She is currently on a heparin drip, beta-rik, statin which we are trying again. She did receive a dose of aspirin. The procedures, alternatives and risks have been discussed with the patient per Dr. Yokasta Frankel. Films have been reviewed. Echocardiogram has been reviewed. Plan is for emergent coronary artery bypass grafting in the a.m. The patient is agreeable and wants to proceed. The family has also been updated and all questions have been answered. STS data shows risk of mortality at 2.3, morbidity mortality 24. Dictated by: MARISSA Medina-Vilma MD EDI Chau/EDITH /2:56 PM /8:46 AM
--- NOTE | 2016-05-07 13:57 | PD.CAR.PN ---
CVT Progress Note CVT: POD #: 2 Subjective/Hospital Course: 60/ f transferred from [facility] / admitted there with Chest pain, found to have NSTEMI, underwent Heart Cath per Dr Juventino Clayton / multivessel disease EF 50 % mild MR PMH: tobacco abuse, HTN, HLP surgery 05/05: Emergent CABG x 3, HUITRON to LAD - good, SVG to OM - good, SVG to PDA - good, L EVH 05/06/16 doing well No complaints 05/07 diuresing well on room air, BB added remains in NSR continue aggressive pulm toileting consult CM for [facility] Objective: GENERAL: SKIN: Warm and dry./ prevena dressing to chest, left leg incision intact HEAD: Normocephalic. EYES: No scleral icterus. No injection or drainage. NECK: Supple, trachea midline. No JVD or lymphadenopathy. CARDIOVASCULAR: Regular rate and rhythm without murmurs, gallops, or rubs. mild edema RESPIRATORY: Breath sounds equal bilaterally. No accessory muscle use. chest tube to wall suction, no air leak, drained 180cc/ 12 hrs GASTROINTESTINAL: Abdomen soft, non-tender, nondistended. MUSCULOSKELETAL: No cyanosis, or edema. BACK: Nontender without obvious deformity. No CVA tenderness. Vital Signs Date Time Temp Pulse Resp B/P Pulse Ox O2 Delivery O2 Flow Rate FiO2 05/07/16 13:00 97 05/07/16 12:31 94 05/07/16 11:40 96 05/07/16 11:40 98.6 96 18 112/74 96 05/07/16 11:26 16 05/07/16 10:01 96 05/07/16 09:08 107 05/07/16 08:59 91 05/07/16 08:59 98.4 91 18 121/69 100 05/07/16 07:31 92 21 05/07/16 06:00 93 05/07/16 05:00 94 05/07/16 04:25 95 Nasal Cannula 05/07/16 04:00 93 05/07/16 03:26 98.4 121/72 96 05/07/16 03:00 93 05/07/16 02:00 98 05/07/16 01:00 93 05/07/16 00:00 92 05/06/16 23:00 100 05/06/16 23:00 98.3 100 124/72 94 05/06/16 22:00 92 05/06/16 21:00 90 05/06/16 20:00 94 05/06/16 19:00 92 05/06/16 19:00 98.2 95 129/67 97 05/06/16 15:00 92 05/06/16 15:00 98.8 99 18 116/62 95 Labs: Laboratory Tests Test 05/07/16 05:40 White Blood Count 11.3 TH/MM3 (4.0-11.0) Red Blood Count 2.83 MIL/MM3 (4.00-5.30) Hemoglobin 8.0 GM/DL (11.6-15.3) Hematocrit 24.2 % (35.0-46.0) Mean Corpuscular Volume 85.3 FL (80.0-100.0) Mean Corpuscular Hemoglobin 28.4 PG (27.0-34.0) Mean Corpuscular Hemoglobin 33.3 % Concent (32.0-36.0) Red Cell Distribution Width 13.8 % (11.6-17.2) Platelet Count 114 TH/MM3 (150-450) Mean Platelet Volume 9.1 FL (7.0-11.0) Neutrophils (%) (Auto) 69.8 % (16.0-70.0) Lymphocytes (%) (Auto) 22.1 % (9.0-44.0) Monocytes (%) (Auto) 7.4 % (0.0-8.0) Eosinophils (%) (Auto) 0.5 % (0.0-4.0) Basophils (%) (Auto) 0.2 % (0.0-2.0) Neutrophils # (Auto) 7.9 TH/MM3 (1.8-7.7) Lymphocytes # (Auto) 2.5 TH/MM3 (1.0-4.8) Monocytes # (Auto) 0.8 TH/MM3 (0-0.9) Eosinophils # (Auto) 0.1 TH/MM3 (0-0.4) Basophils # (Auto) 0.0 TH/MM3 (0-0.2) CBC Comment DIFF FINAL Differential Comment Sodium Level 138 MEQ/L (136-145) Potassium Level 4.4 MEQ/L (3.5-5.1) Chloride Level 100 MEQ/L (98-107) Carbon Dioxide Level 30.5 MEQ/L (21.0-32.0) Anion Gap 8 MEQ/L (5-15) Blood Urea Nitrogen 21 MG/DL (7-18) Creatinine 0.82 MG/DL (0.50-1.00) Estimat Glomerular Filtration 71 ML/MIN (>89) Rate Random Glucose 106 MG/DL (74-106) Calcium Level 8.1 MG/DL (8.5-10.1) Magnesium Level 2.0 MG/DL (1.5-2.5) Result Diagram: 05/07/1640 05/07/1640 Telemetry: NSR (1) Coronary artery disease (2) NSTEMI (non-ST elevated myocardial infarction) (3) S/P CABG x 3 Plan: ASA, statin , BB continue diuresis aggressive pulm toileting nebs, ezpap ambulation (4) Hyperlipemia Plan: on statin, will need increase dose, if pt tolerates (5) Hypertension Plan: stable (6) Tobacco abuse Plan: smoking cessation Melani Mario May 07, 2016 13:57
--- NOTE | 2016-05-07 13:59 | HHI.FF ---
Face to Face Verification Diagnosis: (1) Coronary artery disease (2) Hypertension (3) Hyperlipemia (4) S/P CABG x 3 Home Health Nursing Order: Signs/symptoms of disease process Wound care and dressing changes Instructions: Heart and Vascular Surgery patients *Special attention to sternal dressing Mandatory frequency Assess and evaluation, 4 days in a row The next week 3X week 2 times a week for 4 weeks 1 time a week for 5 weeks Schedule Heart and Vascular patients for full 60 day certification period Initial visit Review Open Heart Surgery Discharge Instructions (Sternal precautions, Activity, Elastic hose, Incision care, Driving, Incentive spirometry, Smoking, [place], Work and other) Need Betadine to paint incision Medication reconciliation Importance of follow up care/ check on appointments Make calendar record temperature daily When to call [facility] nurse, review instructions, phone list Incentive Spirometry, demonstration Visit 1- Begin discharge instruction for patient family and/ or caregiver using teach back method- Signs and symptoms of infection Disease characteristics Medicines and side effects Foods and nutrition/ appetite Infection control/ hand washing/ hygiene Visit 2- Continue teaching Discharge instructions- include additional information on smoking cessation , sternal dressing (sternal vac) Visit 3- Continue teaching- Cough and deep breathing, incision monitoring. Choose my plate Visit 4- Continue teaching- Discuss limitations Discuss how they are feeling Discuss progress toward goals Remaining visits- continue teaching and monitoring Incentive spirometry Q1 hr x 10, while awake, also use acapella device hourly whole awake Sternal Breast Bone Precautions: NO pushing or pulling, ( pt must use sternal pillow to support chest with all activities and with coughing ( takes up to 3 months breast bone to heal ) All females to wear sternal bra , launder as needed Daily incision care: ok to shower daily, no tub bath. Wash all incisions with liquid dial soap, clean wash cloth to each site, rinse and pat dry. Observe for any signs of infection, such as drainage which is dark yellow, carrasco, green or foul smelling. Immediately report to the surgeon any drainage from the chest incision, or legs, and for any abnormal drainage from the chest tube sites. Notify surgeon if any temp >101.5 degrees F. When specialty dressing removed/ or if you do not have one, continue to shower daily as above, then rinse and pat incision dry and paint with betadine daily x 5 days. Allow steri strips to fall off if you have any. Avoid lotions, creams, salves, oils, etc. for the first month Please see attached forms for additional instructions regarding post Open Heart specialty wound vacuum dressings. HEYDI or Prevena , Dressing to be removed by Nursing staff on For Dr. Frankel patients , please obtain CBC, BMP, PA & Lat CXR in 2 weeks, results to Dr. Frankel ( prescription will be given) ( ) (Tele: [phone]) , Valve replacement pts will need 2decho in 2 weeks with results to Dr. Frankel . Please obtain 2 d echo at your barrel cutter office if possible F/U appointment: as per DC instructions: PCP in 2 weeks, CV surgeon 4 weeks, [place] Operator 3-4 weeks For any questions regarding incisions/ dressing / meds / post op care or above Symptoms, Saturday 8am-5pm Heart & Vascular Surgery Office ( Dr. Hobbs & Dr. Frankel), After Hours / Nights (5pm -8am) Weekends and Holidays Please call [facility] ([facility]) Charge Nurse I have seen patient Claudia Montesinos on 05/07/16. My clinical findings support the need for the requested home health care services because: Patient has SOB Deconditioned w/ increased weakness I certify that my clinical findings support that this patient is homebound because: Post-op weakness Melani Mario May 07, 2016 13:59
[2016-05-07] MEDS ORDERED: PILL SPLITTER OTHER PRN (14:00)
[2016-05-07] MEDS: METOPROLOL TARTRATE 25 MG TAB PO SCH ×2 (14:20→21:37)
[2016-05-07] MEDS: PRAVASTATIN SOD 10 MG TAB PO SCH (21:35)
[2016-05-08] VITALS (30 sets, daily range): BP systolic 113–129; BP diastolic 62–73; PULSE 70–92; RESP 16–18; TEMP 97.9–98.5; O2SAT 96–100
[2016-05-08] MEDS: PANTOPRAZOLE SOD 40 MG DELAYED RELEASE TAB PO SCH (06:08)
[2016-05-08] MEDS: AMIODARONE 200 MG TAB PO SCH ×2 (06:08→21:00)
[2016-05-08] MEDS: oxyCODONE/ACETAMINOPHEN 5 MG/325 MG TAB PO PRN ×2 (06:09→21:00)
[2016-05-08] MEDS: INSULIN ASPART SUPPLEMENTAL SCALE SQ SCH ×4 (06:20→20:59)
[2016-05-08] MEDS: RESP: ALBUTEROL 2.5 MG/IPRATROPIUM 0.5 MG NEB (SCH) NEB ×2 (07:44→11:39)
[2016-05-08] MEDS: DOCUSATE SODIUM 100 MG CAP PO SCH ×2 (09:53→20:59)
[2016-05-08] MEDS: POLYETHYLENE GLYCOL 17 GM PKG PO SCH (09:53)
[2016-05-08] MEDS: METOPROLOL TARTRATE 25 MG TAB PO SCH ×2 (09:54→21:00)
[2016-05-08] MEDS: MULTIVITAMINS/MINERALS THERAPEUTIC TAB PO SCH (09:54)
[2016-05-08] MEDS: SODIUM CHLORIDE 0.9% FLUSH 5 ML FLUSH IV FLUSH SCH ×2 (09:54→20:59)
[2016-05-08] MEDS: PRAVASTATIN SOD 80 MG TAB PO SCH (09:54)
[2016-05-08] MEDS: FAMOTIDINE 20 MG TAB PO SCH ×2 (09:54→21:00)
[2016-05-08] MEDS: ASPIRIN 81 MG CHEW TAB PO SCH (09:54)
--- NOTE | 2016-05-08 11:18 | PD.CAR.PN ---
CVT Progress Note CVT: POD #: 3 Subjective/Hospital Course: 60/ f transferred from [facility] / admitted there with Chest pain, found to have NSTEMI, underwent Heart Cath per Dr Juventino Clayton / multivessel disease EF 50 % mild MR PMH: tobacco abuse, HTN, HLP surgery 05/05: Emergent CABG x 3, HUITRON to LAD - good, SVG to OM - good, SVG to PDA - good, L EVH 05/06/16 doing well No complaints 05/07 diuresing well on room air, BB added remains in NSR continue aggressive pulm toileting consult CM for HHC 05/08 chest tube drained 30cc/12 hrs chest tube removed without difficulty on room air / GI motility meds given eval for possible dc in am with C Objective: GENERAL: SKIN: Warm and dry./ prevena to chest / incision intact to left leg HEAD: Normocephalic. EYES: No scleral icterus. No injection or drainage. NECK: Supple, trachea midline. No JVD or lymphadenopathy. CARDIOVASCULAR: Regular rate and rhythm without murmurs, gallops, or rubs. RESPIRATORY: Breath sounds equal bilaterally. No accessory muscle use. GASTROINTESTINAL: Abdomen soft, non-tender, nondistended. MUSCULOSKELETAL: No cyanosis, or edema. BACK: Nontender without obvious deformity. No CVA tenderness. Vital Signs Date Time Temp Pulse Resp B/P Pulse Ox O2 Delivery O2 Flow Rate FiO2 05/08/16 08:04 98.1 92 18 115/64 96 05/08/16 07:45 96 21 05/08/16 07:00 90 05/08/16 06:00 90 05/08/16 05:00 89 05/08/16 04:00 84 05/08/16 03:15 98.5 90 16 126/70 96 05/08/16 03:00 85 05/08/16 02:00 84 05/08/16 01:00 83 05/08/16 00:00 80 05/07/16 23:30 98.8 84 16 106/65 96 05/07/16 23:00 84 05/07/16 22:00 90 05/07/16 21:00 92 05/07/16 20:00 94 05/07/16 20:00 98.7 90 16 116/65 95 05/07/16 19:22 96 21 05/07/16 19:00 89 05/07/16 18:03 91 05/07/16 17:02 83 05/07/16 16:13 84 05/07/16 15:00 98.2 83 18 102/62 96 05/07/16 15:00 83 05/07/16 14:02 99 05/07/16 13:00 97 05/07/16 12:31 94 05/07/16 11:40 96 05/07/16 11:40 98.6 96 18 112/74 96 05/07/16 11:26 16 Result Diagram: 05/07/16 0540 05/07/16 0540 Telemetry: NSR (1) Coronary artery disease (2) NSTEMI (non-ST elevated myocardial infarction) (3) S/P CABG x 3 Plan: ASA, statin , BB continue diuresis aggressive pulm toileting nebs, ezpap ambulation eval for dc in am (4) Hyperlipemia Plan: on statin, will need increase dose, if pt tolerates (5) Hypertension Plan: stable (6) Tobacco abuse Plan: smoking cessation Melani Mario May 08, 2016 11:18
[2016-05-08] MEDS: metFORMIN HCL 500 MG TAB PO SCH (11:28)
[2016-05-08] MEDS: MAGNESIUM HYDROXIDE SUSP 30 ML CUP PO PRN (11:36)
[2016-05-09] VITALS (19 sets, daily range): BP systolic 114–122; BP diastolic 67–72; PULSE 68–89; RESP 15–16; TEMP 97.8–98.5; O2SAT 97–99
[2016-05-09] MEDS: INSULIN ASPART SUPPLEMENTAL SCALE SQ SCH ×2 (06:14→11:36)
[2016-05-09] MEDS ORDERED: BISACODYL 10 MG SUPP RECTAL PRN (06:30)
[2016-05-09] MEDS: oxyCODONE/ACETAMINOPHEN 5 MG/325 MG TAB PO PRN (06:50)
[2016-05-09] MEDS: ASPIRIN 81 MG CHEW TAB PO SCH (08:20)
[2016-05-09] MEDS: DOCUSATE SODIUM 100 MG CAP PO SCH (08:21)
[2016-05-09] MEDS: MULTIVITAMINS/MINERALS THERAPEUTIC TAB PO SCH (08:21)
[2016-05-09] MEDS: SODIUM CHLORIDE 0.9% FLUSH 5 ML FLUSH IV FLUSH SCH (08:21)
[2016-05-09] MEDS: POLYETHYLENE GLYCOL 17 GM PKG PO SCH (08:21)
[2016-05-09] MEDS: FAMOTIDINE 20 MG TAB PO SCH (08:21)
[2016-05-09] MEDS: METOPROLOL TARTRATE 25 MG TAB PO SCH (08:21)
[2016-05-09] MEDS: PRAVASTATIN SOD 80 MG TAB PO SCH (08:21)
[2016-05-09] MEDS: metFORMIN HCL 500 MG TAB PO SCH (08:21)
[2016-05-09] MEDS: AMIODARONE 200 MG TAB PO SCH (08:22)
[2016-05-09] MEDS: MAGNESIUM HYDROXIDE SUSP 30 ML CUP PO PRN (08:23)
[2016-05-09] MEDS ORDERED: POTASSIUM CHLORIDE 10 MEQ CONTROLLED RELEASE TAB PO SCH (09:00)
[2016-05-09] MEDS ORDERED: FUROSEMIDE 40 MG/4 ML VIAL IV PUSH SCH (09:00)
[2016-05-09] MEDS: ONDANSETRON HCL 4 MG/2 ML VIAL IV PUSH PRN (09:26)
--- NOTE | 2016-05-09 09:45 | RADRPT ---
EXAM DATE/TIME: 05/09/2016 09:08 [facility] COMPARISON: CHEST SINGLE AP, May 06, 2016, 3:34. INDICATIONS: Evaluate pneumothorax. Chest tube removed yesterday. MEDICAL HISTORY: Hypercholesterolemia. Hypertension. Diabetes. SURGICAL HISTORY: Appendectomy. Tubal ligation. ENCOUNTER: Subsequent ACUITY: 4 - 6 days PAIN SCORE: 4/10 LOCATION: Bilateral chest FINDINGS: Chest tubes, mediastinal drain and lines have been removed. The right lung is clear. Very minimal p arenchymal changes present left base. Sternal wires are intact. CONCLUSION: There is no pneumothorax. Vinay Flowers MD FACR on May 09, 2016 at 9:39 Board Certified Radiologist. This report was verified electronically.
[2016-05-09] MEDS ORDERED: METO25TA3 PO (14:30)
[2016-05-09] MEDS ORDERED: AMIO200T PO (14:30)
[2016-05-09] MEDS ORDERED: DOCU1CAP39 PO (14:30)
[2016-05-09] MEDS ORDERED: SIMV40TA PO (14:36)
[2016-05-09] MEDS ORDERED: Aspirin Chew PO (14:36)
[2016-05-09] MEDS ORDERED: METF500 PO (14:36)
--- NOTE | 2016-05-09 14:54 | HHI.DS ---
Discharge Summary Admission Date May 04, 2016 at 08:36 Discharge Date: May 09, 2016 Admitting Diagnosis NSTEMI, chest pain (1) Coronary artery disease Diagnosis: Principal (2) Hyperlipemia Diagnosis: Principal (3) Hypertension (4) Tobacco abuse Diagnosis: Principal (5) NSTEMI (non-ST elevated myocardial infarction) Diagnosis: Secondary (6) S/P CABG x 3 Diagnosis: Secondary Procedures 05/05 Emergent CABG x 3 HUITRON to LAD - good SVG to OM - good SVG to PDA - good EVH Brief History 60/ f transferred from [facility] / admitted there with Chest pain, found to have NSTEMI, underwent Heart Cath per Dr Juventino Clayton / multivessel disease EF 50 % mild MR PMH: tobacco abuse, HTN, HLP surgery 05/05: Emergent CABG x 3, HUITRON to LAD - good, SVG to OM - good, SVG to PDA - good, L EVH CBC/BMP: 05/07/16 0540 05/07/16 0540 Significant Findings Laboratory Tests Test 05/07/16 05:40 White Blood Count 11.3 TH/MM3 (4.0-11.0) Red Blood Count 2.83 MIL/MM3 (4.00-5.30) Hemoglobin 8.0 GM/DL (11.6-15.3) Hematocrit 24.2 % (35.0-46.0) Platelet Count 114 TH/MM3 (150-450) Neutrophils # (Auto) 7.9 TH/MM3 (1.8-7.7) Blood Urea Nitrogen 21 MG/DL (7-18) Estimat Glomerular Filtration 71 ML/MIN (>89) Rate Calcium Level 8.1 MG/DL (8.5-10.1) Imaging Last Impressions Chest X-Ray 05/06/16 0500 Signed Impressions: Service Date/Time: Friday, May 06, 2016 03:34 - CONCLUSION: Persistent left lower lung consolidation. Jerrod Yeh MD Lower Extremity Ultrasound 05/04/16 6769 Signed Impressions: Service Date/Time: Wednesday, May 04, 2016 10:30 - CONCLUSION: Venous mapping as described above. Vinay Flowers MD FACR Carotid Artery Ultrasound 05/04/16 1666 Signed Impressions: Service Date/Time: Wednesday, May 04, 2016 09:57 - CONCLUSION: Negative examination for a hemodynamically significant carotid stenosis. Vinay Flowers MD PE at Discharge GENERAL: SKIN: Warm and dry./ sternal incision intact and well approximated / left leg incision intact HEAD: Normocephalic. EYES: No scleral icterus. No injection or drainage. NECK: Supple, trachea midline. No JVD or lymphadenopathy. CARDIOVASCULAR: Regular rate and rhythm without murmurs, gallops, or rubs. RESPIRATORY: diminished in bases Breath sounds equal bilaterally. No accessory muscle use. GASTROINTESTINAL: Abdomen soft, non-tender, nondistended. MUSCULOSKELETAL: No cyanosis, or edema. BACK: Nontender without obvious deformity. No CVA tenderness. Hospital Course 05/06/16 doing well No complaints 05/07 diuresing well on room air, BB added remains in NSR continue aggressive pulm toileting consult CM for [facility] 05/08 chest tube drained 30cc/12 hrs chest tube removed without difficulty on room air / GI motility meds given eval for possible dc in am with [facility] 05/09 doing well , had mild nausea after receiving percocet resolved, remains in NSR + BM stable for dc Pt Condition on Discharge: Good Discharge Disposition: Disch w/ Home Health Serv Discharge Instructions DIET: Follow Instructions for: Heart Healthy Diet, Diabetic Diet Activities you can perform: Full Weight Bearing, Shower Only-No Bath Activities to avoid: Lifting/Bending, Strenuous Activity, Driving Follow up Referrals: Cardiology - 4 Weeks with Nelsy Martins MD PCP Follow-up - 2 Weeks with Prashant Cortez D.o. Surgical - 2 Weeks with Yokasta Frankel MD New Orders: BASIC METABOLIC PROF - 2 Weeks CBC NO DIFF - 2 Weeks X-RAY CHEST PA & LAT - 2 Weeks New Medications: Simvastatin (Simvastatin) 40 Mg Tab 40 MG PO HS Cholesterol Management #30 Ref 2 TAB Amiodarone (Amiodarone) 200 Mg Tab 400 MG PO Q12HR 400mg bid x 2 days , then 200mg bid x 14 days , then 200mg daily x 7 days heart rhythm #30 Ref 0 TAB Docusate Sodium (Dok) 100 Mg Cap 100 MG PO BID Constipation #60 CAP Metformin (Glucophage) 500 Mg Tab 500 MG PO DAILY Blood Sugar Management #30 Ref 2 TAB Metoprolol Tartrate (Metoprolol Tartrate) 25 Mg Tab 12.5 MG PO Q12HR Blood Pressure Management #60 Ref 2 TAB ([Aspirin Chew]) 81 MG CHEW 81 MG PO DAILY #100 Ref 2 TAB.CHEW Continued Medications: Naproxen Sodium (Naproxen Sodium) 275 Mg Tab 550 MG PO DAILY #30 Ref 0 TAB Ranitidine (Ranitidine 75) 75 Mg Tab 150 MG PO DAILY Take 30 to 60 minutes before eating food or drinking beverages that cause heartburn. Heartburn Ref 0 TAB Discontinued Medications: Aspirin DR (Aspir-81) 81 Mg Tabdr 1 TAB PO DAILY Hydrochlorothiazide (Hydrochlorothiazide) 25 Mg Tab 25 MG PO DAILY #30 Ref 0 TAB Hydrocodone-Acetaminophen (Hydrocodone-Acetaminophen) 10-325 mg Tab 1 TAB PO Q4HR PRN PAIN 1 TO 10 AND/OR AGITATION Ref 0 TAB Metformin (Metformin) 500 Mg Tab 500 MG PO DAILY With a meal Blood Sugar Management #30 Ref 0 TAB Simvastatin (Simvastatin) 40 Mg Tab 40 MG PO DAILY Cholesterol Management #30 Ref 0 TAB Melani Mario May 09, 2016 14:54
== END 2016-05-09 16:56 | disposition home health service (06) | DRG 236 ==
LOC: HCVR 08:36 → HCIN 05-06 14:58
PROVIDERS: ADMIT Thoracic Surgery (Cardiothoracic Vascular Surgery); ATTEND Thoracic Surgery (Cardiothoracic Vascular Surgery)
PROC: B246ZZ4 Ultrasonography of Right and Left Heart, Transesophageal (ICD-10-PCS; 2016-05-04)
PROC: 06BQ4ZZ Excision of Left Saphenous Vein, Percutaneous Endoscopic Approach (ICD-10-PCS; 2016-05-05)
PROC: 5A1221Z Performance of Cardiac Output, Continuous (ICD-10-PCS; 2016-05-05)
PROC: 02100Z9 Bypass Coronary Artery, One Artery from Left Internal Mammary, Open Approach (ICD-10-PCS; principal; 2016-05-05 07:48)
PROC: 021109W Bypass Coronary Artery, Two Arteries from Aorta with Autologous Venous Tissue, Open Approach (ICD-10-PCS; 2016-05-05 07:48)
DX: I21.4 Non-ST elevation (NSTEMI) myocardial infarction (principal); I10 Essential (primary) hypertension; I25.119 Atherosclerotic heart disease of native coronary artery with unspecified angina pectoris; E78.5 Hyperlipidemia, unspecified; Z82.49 Family history of ischemic heart disease and other diseases of the circulatory system; Z87.891 Personal history of nicotine dependence; I34.0 Nonrheumatic mitral (valve) insufficiency
CPT/HCPCS: 36430; 71010; 76937; 80048; 81001; 82948; 83036; 83735; 85014; 85025; 85027; 85610; 85730; 86850; 86900; 86901; 86920; 87086; 87641; 92960; 93005; 93306; 93318; 93880; 93970; 93998; 94002; 94150; 94640; 94664; 94667; 94668; J0131; J0282; J0690; J1644; J1815; J1817; J1940; J2150; J2370; J2405; J2440; J2720; J2930; J3010; J3370; J3475; J3480; J7030; J7050; J7120; P9016; P9047

== ENCOUNTER → 2016-06-27 | Outpatient (CLI) | payer OTHER ==
[~2016-06-27] MED LIST changes: +AMIO200T PO; -ASPI81; +Aspirin Chew PO; +DOCU1CAP39 PO; -GLUCTAB PO; -HYDR-2768 PO; -LORTA10 PO; +METF500 PO; +METO25TA3 PO; +NAPR275T18 PO; -NAPR550 PO; -RANI150T PO; +RANI1TAB5 PO
--- NOTE | 2016-06-27 16:28 | RADRPT ---
EXAM DATE/TIME: 06/27/2016 00:00 [facility] COMPARISON: No previous studies available for comparison. INDICATIONS : Right Pleural Thickening FINDINGS: There is a focal area pleural thickening along the right lower posterior pleura as seen on outside im aging studies. This is a small area of focal pleural thickening. CONCLUSION: Small area of focal pleural thickening in the right lower lobe posteriorly of uncertain etiology. PET /CT scan recommended for biopsy planning. Brando Padilla MD on June 27, 2016 at 16:25 Board Certified Radiologist. This report was verified electronically.
== END ==
LOC: HRAD 15:16
PROVIDERS: ATTEND Family Medicine
DX: J92.9 Pleural plaque without asbestos (principal)